=== PATIENT | female | born 1990 | race African-American/Black ===

== ENCOUNTER 2018-10-07 07:15 | Emergency (ER) | payer OTHER ==
[~2018-10-07] VITALS: Ht 172.7 cm; Wt 63.5 kg
[2018-10-07 07:32] VITALS: BP 123/83
[2018-10-07] MEDS ORDERED: ANTI-ITCH28 G1 TOP (07:58)
== END 2018-10-07 08:15 | disposition home or self-care (01) ==
LOC: ER 07:15
DX: R21 Rash and other nonspecific skin eruption (principal)